=== PATIENT | male | born 1995 | race American Indian/Alaskan Native ===

== ENCOUNTER 2025-03-10 05:34 | Emergency (ER) | payer OTHER ==
[2025-03-10] MEDS: Diphtheria,Pertussis(Acell),Tetanus Vaccine 0.5 ML Syringe IM ONE (06:04)
[2025-03-10] MEDS: Bacitracin Oint 1 GM U/D Packet TOP ONE (06:07)
[2025-03-10] MEDS: Lidocaine 1% with EPINEPHrine 1:100,000 20 ML MDV INJECT ONE (06:07)
== END 2025-03-10 07:25 | disposition home or self-care (01) ==
LOC: DL.ED 05:34
DX: S01.81XA Laceration without foreign body of other part of head, initial encounter (principal); Z23 Encounter for immunization; F10.129 Alcohol abuse with intoxication, unspecified; F17.200 Nicotine dependence, unspecified, uncomplicated; Y04.8XXA Assault by other bodily force, initial encounter
CPT/HCPCS: 12011; 90471; 90715; 99283; A9270; J2004